=== PATIENT | male | born 1975 | race Caucasian/White ===

== ENCOUNTER → 2018-04-11 | Outpatient (CLI) | payer OTHER ==
--- NOTE | 2018-04-11 17:10 | CONS ---
CONSULTATION DATE OF SERVICE: 04/11/2018 42-year-old gentleman who has been evaluated in [facility] for obstructive sleep apnea-hypopnea syndrome. HISTORY OF PRESENT ILLNESS/SLEEP WAKE EVALUATION: Patient has been diagnosed with obstructive sleep apnea in 2010, was started on treatment with CPAP but stopped treatment about 3 years ago. At the present time, his sleep schedule on working days from around 9:00 p.m. until 5:30 a.m. and on weekends from around 10 p.m. until 7 a.m. Usually no problems with falling asleep, although he has TV set in bedroom. He sleeps on the side position with his with severe snoring and witnessed episodes of stopped breathing during the sleep. The patient wakes up from sleep around 4 times. In the morning, he wakes up tired, has difficulties to pay attention, has problem with the memory. [facility]arch Sleepiness Scale is 9. PAST MEDICAL HISTORY: Positive for hypertension, hyperlipidemia, history of pulmonary embolism in 2006. History of proteinuria. PAST SURGICAL HISTORY: History of back surgery. MEDICATIONS: Ranitidine, Crestor, lisinopril, Aldactone, Xarelto. SOCIAL HISTORY: Positive for smoking 1 pack a day for about 20 years. Patient continues to smoke. Alcohol consumption occasional. FAMILY HISTORY: Hypertension, hyperlipidemia, ulcers. REVIEW OF SYSTEMS: Snoring, stopped breathing episodes during the sleep, multiple awakenings from sleep, sleepiness during the day. PHYSICAL EXAM: gentleman without distress. BP 136/84, HR 75, RR 14, height 5 and 11, weight 268, body mass index 36.2, temperature 97.0, oxygen saturation on room air 94%. Oropharynx extremely low position of soft palate. Significant restriction of nasal breathing bilaterally. Wide neck 18 inches in circumference. ABDOMEN: Obese. Neck Supple, no JVD. Thyroid is not palpable. LUNGS Clear to percussion and to auscultation. Good air exchange. No wheezing or rhonchi. HEART S1, S2 regular. No murmurs, gallops, or rubs. ABDOMEN: Obese. Soft and nontender. Bowel sounds are present. No organomegaly appreciated. EXTREMITIES No clubbing or cyanosis. ORACLE PROGRAMMER ANALYST Awake, alert, and oriented X3. Cranial nerves 2 to 7 intact. There is no fasciculation or atrophy. noted. No focal deficits observed. IMPRESSION: 1. Loud snoring, witnessed episodes of stopped breathing during the sleep, extremely low position of soft palate, significant restriction of nasal breathing, wide neck, obstructive sleep apnea-hypopnea syndrome. 2. Obesity, body mass index 36.2. 3. Hypertension. 4. Hyperlipidemia. 5. History of pulmonary embolism in 2006. 6. Status post back surgery. 7. History of proteinuria in the past. PLAN: 1. Polysomnography for evaluation of patient's breathing during sleep. 2. CPAP/BiPAP titration if sleep study confirms obstructive sleep apnea-hypopnea syndrome. 3. Preferable position during sleep on the side. 4. No driving if patient feels any sleepiness. 5. I will see patient for follow up visit to explain results of testing and following plan. Thank you very much for referring this patient for consultation. Sincerely, Compa Huerta MD, PhD, FAASM Diplomat of [employer] [employer] [place] [employer] [facility] [place] MMODL / IJN: [id number] /
== END | disposition home or self-care (01) ==
LOC: SLEEP 14:51
PROVIDERS: ATTEND Internal Medicine
DX: G47.33 Obstructive sleep apnea (adult) (pediatric) (principal); M27.8 Other specified diseases of jaws; E66.9 Obesity, unspecified; I10 Essential (primary) hypertension; E78.5 Hyperlipidemia, unspecified; F17.210 Nicotine dependence, cigarettes, uncomplicated; Z86.711 Personal history of pulmonary embolism; Z68.36 Body mass index [BMI] 36.0-36.9, adult; Z79.01 Long term (current) use of anticoagulants; Z98.890 Other specified postprocedural states; Z87.448 Personal history of other diseases of urinary system; Z79.899 Other long term (current) drug therapy
CPT/HCPCS: 99211

== ENCOUNTER → 2018-08-29 | Outpatient (CLI) | payer OTHER ==
--- NOTE | 2018-08-29 18:32 | PN ---
PROGRESS NOTE DATE OF SERVICE: 08/29/2018 This patient is a 42-year-old gentleman who has been followed in the sleep center for treatment of obstructive sleep apnea-hypopnea syndrome. Recently patient had a polysomnogram which showed moderate, close to severe obstructive sleep apnea-hypopnea syndrome. Then patient had CPAP titration. I discussed the results of his sleep studies with the patient in detail. Subsequently he received his CPAP unit. Today is his first visit after he started to use his CPAP equipment. With usage of CPAP equipment, patient feels better. He sleeps better and feels better during the day. Fowler Sleepiness Scale is 11. He feels that there is not enough humidity in the nose; sometimes his nose is dry. I checked his CPAP unit. CPAP pressure is in the range of 8 to 12. Most of the time pressure is 11.5 cm of water. Leak is 6 L/minute, which is within normal range. Apnea- hypopnea index is only 0.7, which is perfect. Usage is /30 nights, and /30 nights for more than 4 hours, with average usage 5.3 hours. MEDICATIONS: 1. Ranitidine. 2. Crestor. 3. Lisinopril. 4. Aldactone. 5. Xarelto. PHYSICAL EXAMINATION: GENERAL: A pleasant patient in no distress. VITAL SIGNS: BP 129/83, HR 84, RR 16, weight 263.6, temperature 97.8, oxygen saturation at room air 94%. HEENT: PERRLA, EOMI. Evaluation of oropharynx showed tongue protrudes midline. Extremely low position of soft palate. Mallampati IV. NECK: Supple. No JVD. Thyroid is not palpable. LUNGS: Clear to percussion and to auscultation. Good air exchange. No wheezing or rhonchi. HEART: S1, S2 regular. No murmurs, gallops or rubs. ABDOMEN: Slightly obese. EXTREMITIES: No clubbing or cyanosis. ASSISTANT FLOOR COVERING PRINTER: Awake, alert, and oriented X3. Cranial nerves 2 to 7 intact. There is no fasciculation or atrophy. noted. No focal deficits observed. IMPRESSION: 1. Moderate borderline to severe obstructive sleep apnea-hypopnea syndrome, under full control with CPAP. Patient has demonstrated good compliance with treatment, benefitting from treatment. 2. Obesity. 3. Hypertension. 4. Hyperlipidemia. 5. History of pulmonary embolism in 2006. 6. Status post back surgery. 7. History of proteinuria in the past. PLAN: 1. Patient will continue to use CPAP equipment every night for the whole night. 2. I explained to patient how to adjust humidity in his CPAP unit. I adjusted humidity up to the level of 4, and it also now will be in automatic regimen for the heated humidifier and heated tube. 3. Will maintain all necessary prescriptions for CPAP supplies, including mask, tube, filters. 4. Follow-up visit in one year, or earlier if patient has any problems. Thank you very much for allowing me to participate in the management of your patient. Sincerely, Compa Huerta MD, PhD, FAASM Diplomat of [place] [employer] [employer] Director of [facility] [place] MMODL / AUBREEN: [id number] /
== END ==
LOC: SLEEP 16:27
PROVIDERS: ATTEND Internal Medicine
DX: G47.33 Obstructive sleep apnea (adult) (pediatric) (principal); E66.9 Obesity, unspecified; I10 Essential (primary) hypertension; E78.5 Hyperlipidemia, unspecified; Z86.711 Personal history of pulmonary embolism; Z98.890 Other specified postprocedural states; Z87.448 Personal history of other diseases of urinary system; Z99.89 Dependence on other enabling machines and devices; Z79.899 Other long term (current) drug therapy